=== PATIENT | male | born 1945 | race Caucasian/White ===

== ENCOUNTER 2017-12-19 08:11 | Inpatient (IN) | payer MEDICARE, OTHER ==
[2017-12-19] MEDS ORDERED: ONDANSETRON 4 MG INJ (08:35)
[2017-12-19] MEDS ORDERED: CEFAZOLIN 1 GM INJ (08:35)
[2017-12-19] MEDS ORDERED: NEOSTIGMINE 3 MG/3 ML SYRINGE (08:35)
[2017-12-19] MEDS ORDERED: PROPOFOL 20 ML (08:35)
[2017-12-19] MEDS ORDERED: MIDAZOLAM 1 MG/ML 2 ML INJ (08:35)
[2017-12-19] MEDS ORDERED: GLYCOPYRROLATE 0.4 MG INJ (08:35)
[2017-12-19] MEDS ORDERED: ROCURONIUM 50 MG INJ (08:35)
[2017-12-19] MEDS ORDERED: FENTAnyl 50 MCG/ML VIAL (08:35)
[2017-12-19] MEDS ORDERED: DEXAMETHASONE 4 MG/ML 1 ML INJ (08:36)
[2017-12-19] MEDS ORDERED: ROPIVACAINE 0.5 % 30 ML VIAL (08:36)
[2017-12-19] MEDS: GABAPENTIN 300 MG CAP PO ×2 (09:06→20:35)
[2017-12-19] MEDS: VANCOMYCIN 1 GM (PMX) 250 ML IVPB (09:06)
[2017-12-19] MEDS: DEXAMETHASONE 1 MG TAB PO (09:06)
[2017-12-19] MEDS: traMADol 50 MG TAB PO (09:06)
[2017-12-19] MEDS: TRANEXAMIC ACID 1,000 MG in DEXTROSE 5% 100 ML IVPB (09:30)
[2017-12-19] MEDS ORDERED: BUPIVACAINE 0.5% (SDV) 30 ML, morphine SULFATE (PF) 8 MG, EPINEPHrine 0.3 MG, KETOROLAC... IRR (09:30)
[2017-12-19] MEDS ORDERED: THROMBIN 5000 UNIT VIAL (09:46)
[2017-12-19] MEDS ORDERED: CA CHLORIDE 10% 10 ML SYRINGE (09:48)
[2017-12-19] MEDS ORDERED: CITRIC ACID/NA CITRATE 30 ML CUP (09:51)
[2017-12-19] MEDS: LIDOCAINE 1%/EPI 30 ML INJ (10:58)
[2017-12-19] MEDS: POLYMYXIN/BACITRACIN 1L IRRIG (10:59)
[2017-12-19] MEDS ORDERED: SUGAMMADEX SODIUM 200 MG/2 ML VIAL IV (11:48)
[2017-12-19] MEDS: DEXAMETHASONE 2 MG TAB PO ×2 (12:00→18:59)
[2017-12-19] MEDS ORDERED: ONDANSETRON 4 MG INJ IV (12:00)
[2017-12-19] MEDS ORDERED: ZOLPIDEM 5 MG TAB PO (12:00)
[2017-12-19] MEDS: TRANEXAMIC ACID 1,000 MG in DEXTROSE 5% 100 ML IV (12:00)
[2017-12-19] MEDS ORDERED: DIPHENHYDRAMINE 50 MG INJ IV (12:00)
[2017-12-19] MEDS ORDERED: morphine 2 MG INJ IV ×2 (12:00)
[2017-12-19] MEDS ORDERED: LORAZEPAM 0.5 MG TAB PO (12:00)
[2017-12-19] MEDS ORDERED: OXYCODONE/ACETAMINOPHEN (5/325) TAB PO ×2 (12:00)
[2017-12-19] MEDS ORDERED: KETOROLAC 15 MG INJ IV (12:00)
[2017-12-19] MEDS: CEFAZOLIN 1 GM/50 ML (PMX) 50 ML IVPB ×2 (12:00→20:35)
[2017-12-19] MEDS ORDERED: MAGNESIUM HYDROXIDE 30ML CUP PO (12:00)
[2017-12-19] MEDS ORDERED: ACETAMINOPHEN 500 MG TAB PO (12:00)
[2017-12-19] MEDS ORDERED: AMPHET ASP AMPHET D AMPHET PO (13:00)
[2017-12-19] MEDS ORDERED: VITAMIN A & D 5 GM OINT PACKET TOP (14:46)
[2017-12-19] MEDS: SENNA/DOCUSATE NA (8.6MG/50MG) TAB PO (20:35)
[2017-12-20] MEDS: DEXAMETHASONE 2 MG TAB PO ×2 (00:18→06:12)
[2017-12-20] MEDS: CEFAZOLIN 1 GM/50 ML (PMX) 50 ML IVPB (04:06)
[2017-12-20] MEDS: SENNA/DOCUSATE NA (8.6MG/50MG) TAB PO (08:43)
[2017-12-20] MEDS: ASPIRIN 81 MG TAB PO (08:44)
== END 2017-12-20 12:55 | disposition home or self-care (01) | DRG 483 ==
LOC: REC 08:11 → MS1 13:48
PROC: 0RRJ00Z Replacement of Right Shoulder Joint with Reverse Ball and Socket Synthetic Substitute, Open Approach (ICD-10-PCS; principal; 2017-12-19 09:30)
PROC: 0RPJ0JZ Removal of Synthetic Substitute from Right Shoulder Joint, Open Approach (ICD-10-PCS; 2017-12-19 09:30)
DX: T84.038A Mechanical loosening of other internal prosthetic joint, initial encounter (principal); T84.84XA Pain due to internal orthopedic prosthetic devices, implants and grafts, initial encounter; M75.101 Unspecified rotator cuff tear or rupture of right shoulder, not specified as traumatic
CPT/HCPCS: 73030-RT; 86999; 88300; 97165